=== PATIENT | male | born 1980 | race Caucasian/White ===

== ENCOUNTER → 2016-09-24 | Outpatient (CLI) | payer BC ==
--- NOTE | 2016-09-24 15:01 | KCIC ---
PROCEDURE Complete renal ultrasound. HISTORY Hematuria. TECHNIQUE Real-time ultrasound imaging of the kidneys and the bladder is performed. COMPARISON None. FINDINGS The abdominal aorta is normal in caliber. The IVC is patent. The urinary bladder is normal. Right and left ureteral jets are seen. Normal appearance of the kidneys, no hydronephrosis. Right kidney length is 10.5 cm as is the left kidney. IMPRESSION Normal renal ultrasound. Electronically signed by: Loc Dean MD (September 24, 2016 14:59:49)
== END | disposition home or self-care (01) ==
LOC: KCIC US 14:19
PROVIDERS: ATTEND Nurse Practitioner Family
DX: R31.9 Hematuria, unspecified (principal)
CPT/HCPCS: 76770

== ENCOUNTER 2021-02-07 14:30 | Inpatient (IN) | payer OTHER ==
[~2021-02-07] VITALS: Ht 177.8 cm; Wt 84.0 kg
[2021-02-07] VITALS (9 sets, daily range): BP systolic 102–126; BP diastolic 74–82
[2021-02-07] MEDS ORDERED: MORPHINE SULFATE 2 MG/ML INJ. IV PRN (15:15)
[2021-02-07] MEDS ORDERED: LIDOCAINE 1% Multi-Dose 20 ML VIAL. ONE (15:21)
--- NOTE | 2021-02-07 15:21 | PDOC1 ---
History and Physical Date of Admission Date of Admission DATE: 02/07/21 TIME: 15:20 Identification/Chief Complaint Chief Complaint Left hip pain, unable to walk Source Source: Patient History of Present Illness History of Present Illness Mr Barnett is a 40-year-old male with no past medical history who presented overnight on 02/06/21 to [facility] ED in [place], [place] c/o progressive pain in his hip Over the past 4 days he notes an initial "catching" and clicking and pain that has progressed to swelling with stiffness that began on 02/05/2021 and overnight was unable to move without severe pain and now is having difficulty lifting his leg 7 out of 10, sharp in nature with no radiation. States he has never had anything like this before. Denies any recent traumas, illnesses, fevers, chest pain, shortness of breath, abdominal pain, nausea, vomiting, dysuria, blood in the stool or diarrhea. Historically has had hematuria, but this was 5 years ago and none since. Denies any penile or scrotal pain, swelling or discharge. Denies any history of STIs. States he took hydrocodone about an hour before coming which gave minimal relief. He had morphine x3 doses, was unable to bear weight on his left hip CT notable for large left hip joint effusion, concerning for septic joint. Afebrile, pulse 98/min respirations 22/min blood pressure 140/68. WBC 15.4, Hb 14.3, platelets 220, NA 137, K4.1, BUN 11, Cr 1, Glucose 144, CRP 17, Lactic acid 1.4, Urice acid 6.7, Ca 8.5. Rapid COVID 19 negative ED d/w orthopedic surgery and myself to transfer for further assessment given his labs values and concern for inability to bear weight and possible septic joint. Seen in PACU at [place]. 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 He has no history of prior joint problems and is not taking medications. He has previously had wisdom tooth extraction and bilateral ingu inal hernia repairs. No history of blood clots or blood transfusion. Had some difficulty with wisdom tooth anesthesia but no problems with anesthesia with hernia repairs. D/w radiology and orthopedic surgery. Admitted for further care. Past Medical History Cardiovascular: No pertinent hx Pulmonary: No pertinent hx Past Surgical History Past Surgical History [place] tooth extraction, bilateral inguinal hernia repair Past Surgical History: Hernia Repair (Bilateral inguinal) Family History Family History reviewed Family History: No Significant Social History Smoke: No ALCOHOL: rare Drugs: None Current Medications Current Medications Current Medications Morphine Sulfate (Morphine Sulfate) 1 mg PRN Q1HR PRN IV PAIN; Start 02/07/21 at 15:15; Status UNV ROS General: No: Chills, Night Sweats, Fatigue, Malaise, Appetite, Other PSYCHOLOGICAL ROS: No: Anxiety, Behavioral Disorder, Concentration difficultie, Decreased libido, Depression, Disorientation, Hallucinations, Hostility, Irritablity, Memory difficulties, Mood Swings, Obsessive thoughts, Physical abuse, Sexual abuse, Sleep disturbances, Suicidal ideation, Other Eyes: No Blurry vision, No Decreased vision, No Double vision, No Dry eyes, No Excessive tearing, No Eye Pain, No Itchy Eyes, No Loss of vision, No Photophobia, No Scotomata, No Uses contacts, No Uses glasses, No Other HEENT: No: Heacaches, Visual Changes, Hearing change, Nasal congestion, Nasal discharge, Oral lesions, Sinus pain, Sore Throat, Epistaxis, Sneezing, Snoring, Tinnitus, Vertigo, Vocal changes, Other ALLERGY AND IMMUNOLOGY: No: Hives, Insect Bite Sensitivity, Itchy/Watery Eyes, Nasal Congestion, Post Nasal Drip, Seasonal Allergies, Other Hematological and Lymphatic: No: Bleeding Problems, Blood Clots, Blood Transfusions, Brusing, Night Sweats, Pallor, Swollen Lymph Nodes, Other ENDOCRINE: No: Breast Changes, Galactorrhea, Hair Pattern Changes, Hot Flashes, Malaise/lethargy, Mood Swings, Palpitations, Polydipsia/polyuria, Skin Changes, Temperature Intolerance, Unexpected Weight Changes, Other Breast: No New/Changing Breast Lumps, No Nipple changes, No Nipple discharge, No Other Respiratory: No: Cough, Hemoptysis, Orthopnea, Pleuritic Pain, Shortness of breath, SOB with excertion, Sputum Changes, Stridor, Tachypnea, Wheezing, Other Cardiovascular: No Chest Pain, No Palpitations, No Orthopnea, No Paroxysmal Noc. Dyspnea, No Edema, No Lt Headedness, No Other Gastrointestinal: No Nausea, No Vomiting, No Abdominal Pain, No Diarrhea, No Constipation, No Melena, No Hematochezia, No Other Genitourinary: No Dysuria, No Frequency, No Incontinence, No Hematuria, No Retention, No Discharge, No Urgency, No Pain, No Flank Pain, No Other, No , No , No , No , No , No , No Musculoskeletal: Yes Gait Disturbance, Yes Joint Pain, Yes Joint Stiffness, Yes Joint Swelling; No Muscle Pain, No Muscular Weakness, No Pain In:, No Swelling In:, No Other Neurological: Yes Gait Disturbance; No Behavorial Changes, No Bowel/Bladder ControlChng, No Confusion, No Dizziness, No Headaches, No Impaired Coord/balance, No Memory Loss, No Numbness/Tingling, No Seizures, No Speech Problems, No Tremors, No Visual Changes, No Weakness, No Other Skin: No Dry Skin, No Eczema, No Hair Changes, No Lumps, No Mole Changes, No Mottling, No Nail Changes, No Pruritus, No Rash, No Skin Lesion Changes, No Other, No Acne Physical Exam General: Alert, Oriented X3, Cooperative, moderate distress HEENT: Atraumatic, PERRLA, EOMI, Mucous membr. moist/pink Lungs: Clear to auscultation, Normal air movement Heart: S1S2, RRR, no thrills, no rubs, no gallops, no murmurs Abdomen: Normal bowel sounds, Soft, No tenderness, No hepatosplenomegaly, No masses Extremities: No clubbing, No cyanosis, No edema, Normal pulses, Other (left hip laterally tender, swollen, pain on extension) Skin: No rashes, No breakdown, No significant lesion Neuro: Normal speech, Strength at 5/5 X4 ext, Normal tone, Sensation intact, Cranial nerves 3-12 NL, Reflexes 2+ Psych/Mental Status: Mental status NL, Mood NL Images Images CT pelvis with IV contrast DATE: 02/07/2021 3:53 AM COMPARISON: No prior INDICATION: Reason: OMNI 300,75ML IV.Left sided groin pain lateral to pubic symph / Spl. Instructions: / History: TECHNIQUE: CT of the pelvis was performed following the administration of IV contrast. Axial, coronal and sagittal reformatted images were generated. PQRS compliance statement - One or more of the following individualized dose reduction techniques were utilized for this study: 1. Automated exposure control 2. Adjustment of the mA and/or kV according to patient size 3. Use of iterative reconstruction technique FINDINGS: There is a large left hip joint effusion. Moderate colonic stool content. No pelvic mass, lymphadenopathy or ascites. No aggressive osseous lesion is seen. IMPRESSION: 1. There is a large left hip joint effusion, uncertain clinical significance. This can be correlated with lab values, if there is clinical concern for septic joint aspiration can be performed. VTE Prophylaxis Ordered VTE Prophylaxis Devices: Yes VTE Pharmacological Prophylaxi: No Assessment/Plan Assessment/Plan A/P: Effusion of hip joint, left - concern for possible septic joint. Will hold antibiotics and d/w radiology for arthrocentesis under fluoro with culture, gram stain, crystal analysis. Orthopedic surgery consulted, seen bedside in PACU by Dr. Vasquez Unable to walk - due to above. d/w orthopedic surgery may need I&D Intractable hip pain - morphine for pain control SIRS - leukocytosis, tachycardia, possibly with septic hip joint. FEN - NPO PPX - SCDs FULL CODE Dispo - inpatient for above Justifications for Admission Other Justification BARRY TROTTER MD Feb 07, 2021 15:21
[2021-02-07] MEDS ORDERED: ACETAMINOPHEN 325 MG TABLET. PO PRN (15:30)
[2021-02-07] MEDS ORDERED: fentaNYL PF VIAL 100 MCG/2 ML VIAL IVP PRN ×4 (15:30→16:30)
[2021-02-07] MEDS ORDERED: ONDANSETRON PF 4 MG/2 ML VIAL. IVP PRN ×2 (15:30→16:30)
[2021-02-07] MEDS ORDERED: IOHEXOL 300 MG/ML 50 ML VIAL. ONE (15:39)
--- NOTE | 2021-02-07 15:43 | PDOC2 ---
Consult: Patient seen and evaluated in the preoperative holding area. He was transferred from [facility] just recently on my recommendation secondary to concerns for septic left hip joint. He apparently has had 4 days of slightly increasing hip pain until the last 12 hours he has had significant pain. He awoke in the middle of the night with severe left hip pain and inability to move or ambulate due to pain. He was subsequently seen at [facility] emergency room I was contacted and requested urgent transfer to [facility]. He is here today. His pain is somewhat controlled today with IV pain medication he is already received. He denies any specific injury or antecedent fever chills or constitutional symptoms of infection. Past medical surgical family and social history have been reviewed and are on the electronic health record as of February 07, 2021 Physical examination: Focused musculoskeletal exam with regards of the left lower extremity reveals no obvious deformity skin is intact. Neurovascular status is intact. He has a positive Stinchfield test. Tenderness over the left groin. Moderate to severe pain with passive range of motion of the left hip. Diagnostic findings He did have a noncontrast CT scan which reveals a large effusion of the left hip. No evidence of acute fracture or traumatic soft tissue injury seen on CT scan. Diagnosis: Severe left hip pain rule out septic arthritis I discussed with him his options for treatment. I recommended urgent interven tional radiology aspiration of the hip. If the tap appears to be infectious in nature he will need urgent incision and drainage of his hip while we await culture results. I discussed with him the long-term outlook of septic arthritis and in the short-term he will require 2 to 6 weeks of IV antibiotics depending on microbiology. He is understanding of this and wishes to proceed. We will first get him to interventional radiology and then may need to consider open drainage of his hip. BARRY LORA DO Feb 07, 2021 3:43 pm
[2021-02-07] MEDS ORDERED: HYDROmorphone 2 MG/ML VIAL IVP PRN (16:15)
[2021-02-07] MEDS ORDERED: PROCHLORPERAZINE 10 MG/2 ML VIAL. IVP PRN (16:15)
[2021-02-07] MEDS ORDERED: MORPHINE SULFATE 2 MG/ML INJ. IVP PRN ×2 (16:15→16:30)
[2021-02-07] MEDS ORDERED: LIDOCAINE 2% PF 5 ML VIAL. ONE (16:15)
[2021-02-07] MEDS ORDERED: IV RINGERS,LACTATED 1000ML 1,000 ML IV SCH (16:15)
[2021-02-07] MEDS ORDERED: PROPOFOL 10 MG/ML (20ML) VIAL. IV ONE (16:16)
[2021-02-07] MEDS ORDERED: fentaNYL PF VIAL 100 MCG/2 ML VIAL ONE (16:16)
--- NOTE | 2021-02-07 16:29 | RAD ---
EXAM: Fluoroscopically guided left hip aspiration joint injection of steroid and anesthetic INDICATION: Septic arthritis COMPARISON: CT abdomen pelvis 02/07/2021 TECHNIQUE/FINDINGS: The purpose of the procedure and risks including infection, bleeding, contrast reaction, and pain wer e discussed with the patient. Informed consent was obtained. A timeout was performed. After obtaining consent, the patient was placed supine on the fluoroscopy table with the left hip int ernally rotated. The skin overlying the left hip was marked, sterilized and draped. Superficial and deep soft tissues were anesthetized with 1% lidocaine. Utilizing fluoroscopic guidance, a 18-gauge 3.5" needle was advanced into the joint. Purulent fluid spontaneously flowed from the needle. 20 cc o f purulent fluid was aspirated and sent to the laboratory for analysis. A small amount of iodinated c ontrast was injected to confirm intra-articular position. The needle was removed and skin cleansed an d covered with a Band-Aid. The patient tolerated the procedure well and was free of immediate complications. Total fluoroscopic time 0.4 minutes. One image acquired. IMPRESSION: Technically successful left hip joint aspiration. Electronically signed by: Sima Kang MD (02/07/2021 4:26 PM) [id number]
[2021-02-07] MEDS ORDERED: oxyCODONE IR 5 MG TABLET PO PRN (16:30)
[2021-02-07] MEDS ORDERED: POLYETHYLENE GLYCOL 3350 17 GM PACKET. PO PRN (16:30)
[2021-02-07] MEDS ORDERED: MORPHINE SULFATE 4 MG/ML INJ. IVP PRN (16:30)
[2021-02-07] MEDS ORDERED: DEXTROSE 50% 25 GM / 50ML DISP.SYRIN. IV PRN (16:30)
[2021-02-07] MEDS ORDERED: ONDANSETRON PF 4 MG/2 ML VIAL. ONE (16:58)
[2021-02-07] MEDS ORDERED: SEVOFLURANE 31 TO 60 MINUTES. IH ONE (17:29)
--- NOTE | 2021-02-07 18:08 | PDOC4 ---
OPERATIVE NOTE: PROCEDURE: Open left hip irrigation and drainage POSTOPERATIVE DIAGNOSIS: Left hip presumed septic arthritis SURGEON: Barry Vasquez DO DELI CUTTER SLICER: None EBL: Less than 50 cc SPECIMEN: None ANESTHESIA: General POSITION: Lateral decubitus COMPLICATIONS: None. GROSS FINDINGS: Mucopurulent material was found within the joint with significant synovitis DISPOSITION: To PACU stable. IMPLANT SPECIFICATIONS: None DESCRIPTION OF PROCEDURE: Patient seen in the preoperative holding area site is marked consent was verified. He just underwent hip aspiration under imaging by interventional radiology. The aspirate was under high pressure and purulent in nature according to the radiologist. The decision was made for urgent drainage. This was discussed with the patient at length as well as his who is present today. At this point we have no microbiology to guarantee infection however his symptoms as well as the appearance of his aspirate are highly suggestive of septic arthritis. Patient received preoperative antibiotics was wheeled back the operating room. Department anesthesia administered general anesthetic maintained to control the airway. Once adequately anesthetized he was positioned with left hip up on a beanbag. At this point sterile prep and drape was performed the left lower extremity and hemipelvis. At this point a 15 cm incision was made centered over the greater trochanter. Soft tissue dissection was carried out sharply. The iliotibial band and gluteus fascia was split in line with the femur. The hip was slightly externally rotated. The anterior one third of the tendinous gluteus medius was identified and a small snip was carried out. Electrocautery was used to peel up the anteri or one third of the gluteus medius tendon off of the anterior femur and greater trochanter. At this point we had visualization of the capsule which was then split in a T-type arthrotomy. There is a moderate amount of mucopurulent material that was copiously irrigated and suctioned dry. Synovium was debrided in all areas of visualization. There were no masses seen. The wound was then copiously irrigated with 3 L of saline. It was suctioned dry. A deep drain was placed and the capsulotomy was left open. The gluteus medius was then closed followed by the gluteus bhupinder and iliotibial band. Subcutaneous tissues were closed in layers. Large bulky dressing was applied and anesthesia was reversed. Patient was transferred to postop in apparent stable condition. Prognosis is guarded as we will await final cultures. DISPOSITION: Patient Will be transferred to postop and anticipate discharge when stable. Prognosis: Good BARRY VASQUEZ DO Feb 07, 2021 18:08
[2021-02-07] MEDS ORDERED: VANCOMYCIN 2 GM in IV NORMAL SALINE 500ML BAG 500 ML IV ONE ×2 (18:15→19:00)
[2021-02-07 19:54] LABS: BF CLARITY CLOUDY; BF COLOR YELLOW; BF MON % 6 %; BF PMN % 94 %; BF RBC COUNT 400 /cmm (Not Established); BF SOURCE SYNOVIAL; BF WBC COUNT 6350 /cmm (Not Established)
[2021-02-07 19:55] LABS: BF OTHER % 0 %
[2021-02-07] MEDS: VANCOMYCIN PER PHARMACY MC PRN ×2 (20:47→22:25)
[2021-02-07] MEDS: cefTRIAXone IV Push 2 GM VIAL. IVP SCH (21:56)
[2021-02-08] MEDS: VANCOMYCIN PER PHARMACY MC PRN ×2 (02:01→14:46)
--- NOTE | 2021-02-08 02:02 | NUR ---
Pharmacy Vancomycin Dosing Note S:Consulted to monitor and dose vancomycin started 02/07/21. O:GRIS CASTAÑEDA is a 40 year old M with Drainage of Septic Hip . Height: 5 feet, 10 inches Weight: 84.0 kg [place] Body Weight: 73.00 Adjusted Body Weight: 77.40 Dosing Weight: Actual Other Antibiotics: LABS: Last BUN: 11 Last Creatinine: 1.0 Creatinine Clearance: 104 mL/min Last WBC: 15.4 Last Procalcitonin: - Tmax (past 24 hours): 100.9 Microbiology: I/O: Drug Levels: Last level: on at Last dose given 02/07/21 at 1958 Vancomycin Dosing: Loading Dose: 2000 mg x1 Dosing Weight: Actual Target Trough: 15-20 A: Based on: WEIGHT, CRCL~104, P: 1. INITIATE Vancomycin 1250 mg IV q12h AFTER 2000 MG LOADING DOSE 2. Follow up Trough level on 02/09/21 at 0730 3. Pharmacy will continue to monitor, follow and adjust therapy as needed. EHSAN TORRES [facility], 02/08/21 0206
[2021-02-08 03:00] VITALS: BP 125/80
[2021-02-08] MEDS: HYDROcodone/APAP 7.5/325MG 1 TAB TABLET PO PRN ×3 (04:32→18:00)
--- NOTE | 2021-02-08 05:27 | PDOC ---
Provider Note Date of Service: DATE: 02/08/21 TIME: 05:27 Provider Note Patient seen and evaluated this morning. He is resting well. No complaints of pain. Review of systems is negative today except for that noted in the history EXAM: -------- Well-nourished well-developed patient General: No acute distress. Neurologic: Alert. Psychiatric: Cooperative. Left hip dressing is clean dry and intact neurovascular status is intact. ASSESSMENT & PLAN: Status post I&D left hip on February 07, 2021 At this point I recommended infectious disease weigh in on concerns of septic arthritis and antibiotic treatment moving forward. He can weight-bear as tolerated. We will follow-up tomorrow. Justifications for Admission Other Justification BARRY LORA DO Feb 08, 2021 5:27 am
[2021-02-08] MEDS ORDERED: MAGNESIUM HYDROXIDE 2,400 MG/30 ML ORAL.SUSP. PO PRN (06:00)
[2021-02-08 07:00] VITALS: BP 112/68
[2021-02-08] MEDS: VANCOMYCIN 1.25 GM in IV NORMAL SALINE 250ML 250 ML IV SCH ×2 (08:20→20:48)
[2021-02-08] MEDS: LACTOBACILLUS RHAMNOSUS GG 1 CAPSULE. PO SCH ×2 (09:32→20:53)
[2021-02-08] MEDS: SENNOSIDES/DOCUSATE 8.6/50MG TABLET. PO SCH (09:32)
[2021-02-08 10:59] VITALS: BP 114/74
[2021-02-08 11:31] LABS: GFR 82.3
[2021-02-08 15:00] VITALS: BP 114/72
[2021-02-08] MEDS ORDERED: BISACODYL 10 MG SUPP.RECT. PR PRN (16:00)
[2021-02-08 16:38] LABS: HEMATOCRIT 37.7 % (39.0-53.0); HEMOGLOBIN 12.9 g/dL (13.0-17.5)
[2021-02-08 19:00] VITALS: BP 111/73
[2021-02-08] MEDS: cefTRIAXone IV Push 2 GM VIAL. IVP SCH (20:47)
[2021-02-08 23:00] VITALS: BP 117/79
[2021-02-09 03:00] VITALS: BP 118/78
[2021-02-09] MEDS: HYDROcodone/APAP 7.5/325MG 1 TAB TABLET PO PRN ×4 (03:32→21:01)
[2021-02-09 07:00] VITALS: BP 112/73
[2021-02-09 09:28] LABS: VANC TR 9.2 mcg/mL (10.0-20.0)
[2021-02-09] MEDS: SENNOSIDES/DOCUSATE 8.6/50MG TABLET. PO SCH (09:52)
[2021-02-09] MEDS: LACTOBACILLUS RHAMNOSUS GG 1 CAPSULE. PO SCH ×2 (09:52→21:01)
[2021-02-09] MEDS: VANCOMYCIN 1.25 GM in IV NORMAL SALINE 250ML 250 ML IV SCH ×2 (09:52→17:23)
[2021-02-09 09:55] LABS: CREATININE 0.9 mg/dL (0.7-1.3)
[2021-02-09] MEDS: VANCOMYCIN PER PHARMACY MC PRN (10:24)
--- NOTE | 2021-02-09 10:24 | NUR ---
Pharmacy Vancomycin Dosing Note S:Consulted to monitor and dose vancomycin started 02/07/21. O:GRIS CASTAÑEDA is a 40 year old M with Drainage of Septic Hip . Height: 5 feet, 10 inches Weight: 84.0 kg [place] Body Weight: 73.00 Adjusted Body Weight: 77.40 Dosing Weight: Actual Other Antibiotics: ROCEPHIN LABS: Last BUN: 11 Last Creatinine: 0.9 Creatinine Clearance: >100 mL/min Last WBC: 12.9 Last Procalcitonin: - Tmax (past 24 hours): 99.1 Microbiology: I/O: Drug Levels: Last Trough level: 9.2 on 02/09/21 at 0820 Last dose given 02/08/21 at 2048 Vancomycin Dosing: Loading Dose: 2000 mg x1 Dosing Weight: Actual Target Trough: 15-20 A: Based on: Subtherapeutic trough P: 1. Increase frequency to Vancomycin 1250 mg IV q8h 2. Follow up Trough level on 02/10/21 at 0930 3. Pharmacy will continue to monitor, follow and adjust therapy as needed. ISIDRO WORLEY RPH, 02/09/21 [id number]
[2021-02-09 11:00] VITALS: BP 115/65
[2021-02-09 15:15] VITALS: BP 113/66
[2021-02-09 19:00] VITALS: BP 119/66
--- NOTE | 2021-02-09 19:10 | PDOC ---
[employer] PROGRESS NOTE Date of Service DOS: DATE: 02/09/21 TIME: 18:58 Chief Complaint Chief Complaint Effusion of hip joint, left - concern for possible septic joint. Will hold antibiotics and d/w radiology for arthrocentesis under fluoro with culture, gram stain, crystal analysis. Orthopedic surgery consulted, seen bedside in PACU by Dr. Vasquez Unable to walk - due to above. d/w orthopedic surgery may need I&D Intractable hip pain - morphine for pain control SIRS - leukocytosis, tachycardia, possibly with septic hip joint. FEN - NPO PPX - SCDs FULL CODE Dispo - inpatient for above History of Present Illness History of Present Illness Mr Barnett is a 40-year-old male with no past medical history who presented overnight on 02/06/21 to [facility] ED in [place], [place] c/o progressive pain in his hip Over the past 4 days he notes an initial "catching" and clicking and pain that has progressed to swelling with stiffness that began on 02/05/2021 and overnight was unable to move without severe pain and now is having difficulty lifting his leg 7 out of 10, sharp in nature with no radiation. States he has never had anything like this before. Denies any recent traumas, illnesses, fevers, chest pain, shortness of breath, abdominal pain, nausea, vomiting, dysuria, blood in the stool or diarrhea. Historically has had hematuria, but this was 5 years ago and none since. Denies any penile or scrotal pain, swelling or discharge. Denies any history of STIs. States he took hydrocodone about an hour before coming which gave minimal relief. He had morphine x3 doses, was unable to bear weight on his left hip CT notable for large left hip joint effusion, concerning for septic joint. Afebrile, pulse 98/min respirations 22/min blood pressure 140/68. WBC 15.4, Hb 14.3, platelets 220, NA 137, K4.1, BUN 11, Cr 1, Glucose 144, CRP 17, Lactic acid 1.4, Urice acid 6.7, Ca 8.5. Rapid COVID 19 negative ED d/w orthopedic surgery and myself to transfer for further assessment given his labs values and concern for inability to bear weight and possible septic joint. Seen in PACU at [place]. 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 He has no history of prior joint problems and is not taking medications. He has previously had wisdom tooth extraction and bilateral inguinal hernia repairs. No history of blood clots or blood transfusion. Had some difficulty with wisdom tooth anesthesia but no problems with anesthesia with hernia repairs. D/w radiology and orthopedic surgery. 02/09/2021: Afebrile. Reports left hip pain with movement. Hydrocodone helps, but wears off. Frustrated he is not improving faster. Encouraged continued work with PT. Discussed with Dr. Vasquez, no cell count or Gram stain have resulted yet. No crystals seen under normal or polarized light will reorder fluid studies; cell count, AFB, fungal culture, aerobic/anaerobic culture, crystals, Gram stain. Will place consultation to ID. Vitals/I&O Vitals/I&O: Vital Signs Date Time Temp Pulse Resp B/P (MAP) Pulse Ox O2 Delivery O2 Flow Rate FiO2 02/09/21 15:15 99.3 100 20 113/66 (82) 91 Room Air 99.3 02/09/21 03:00 2.0 I & O 02/08/21 02/08/21 02/09/21 15:00 23:00 07:00 Intake Total 200 ml 0 ml Output Total 300 ml Balance 200 ml -300 ml Physical Exam General: Alert, Oriented X3, Cooperative, moderate distress Heart: Regular rate Lungs: Clear Abdomen: Normal bowel sounds, Soft, No tenderness, No hepatosplenomegaly, No masses Extremities: No clubbing, No cyanosis, No edema, Normal pulses, Other (left hip laterally tender, swollen, pain on extension) Skin: No rashes, No breakdown, No significant lesion Labs Labs: Laboratory Tests Test 02/09/21 08:20 Creatinine 0.9 mg/dL (0.7-1.3) Estimated GFR (Cockcroft-Gault) 93.0 Vancomycin Level Trough 9.2 mcg/mL (10.0-20.0) Vancomycin Last Dose Date 02/08/21 Vancomycin Last Dose Time 1999 Comment Review of Relevant I have reviewed the following items pietro (where applicable) has been applied. Medications: Current Medications Medications (Trade) Dose Ordered Sig/Re Route PRN Reason Start Time Stop Time Status Last Admin Dose Admin Vancomycin HCl (Vancomycin Trough Level) 1 each 1X ONCE MC 02/09/21 07:30 02/09/21 07:31 DC 02/09/21 07:30 Vancomycin HCl 1.25 gm/Sodium Chloride 250 ml @ 167 mls/hr Q8H IV 02/09/21 18:00 02/09/21 17:23 Justifications for Admission Other Justification DOMONIQUE BROWN MD Feb 09, 2021 19:10
[2021-02-09] MEDS ORDERED: oxyCODONE/APAP 7.5/325 1 TAB TABLET PO PRN (19:15)
[2021-02-09] MEDS ORDERED: oxyCODONE/APAP 5/325 1 TAB TABLET PO PRN (19:15)
[2021-02-09] MEDS: cefTRIAXone IV Push 2 GM VIAL. IVP SCH (21:01)
[2021-02-09 23:00] VITALS: BP 111/61
[2021-02-10 03:00] VITALS: BP 123/66
[2021-02-10] MEDS: VANCOMYCIN 1.25 GM in IV NORMAL SALINE 250ML 250 ML IV SCH ×2 (04:20→09:51)
[2021-02-10 07:15] VITALS: BP 120/61
[2021-02-10 07:28] LABS: BASO % 0 % (0-3); EOS # 0.2 x10^3/uL (0.0-0.7); EOS % 2 % (0-3); HEMATOCRIT 36.1 % (39.0-53.0); HEMOGLOBIN 12.4 g/dL (13.0-17.5); LYMPH # 1.8 x10^3/uL (1.0-4.8); LYMPH % 17 % (24-48); MEAN CORPUSCULAR HEMOGLOBIN 32 pg (25-35); MEAN CORPUSCULAR HGB CONC 34 g/dL (31-37); MEAN CORPUSCULAR VOLUME 93 fL (79-100); MONO # 0.9 x10^3/uL (0.0-1.1); MONO % 9 % (0-9); NEUT # 7.6 x10^3/uL (1.8-7.7); NEUT % 73 % (31-73); PLATELET COUNT 258 x10^3/uL (140-400); RED BLOOD COUNT 3.89 x10^6/uL (4.30-5.70); RED CELL DISTRIBUTION WIDTH 13.4 % (11.5-14.5); WHITE BLOOD COUNT 10.5 x10^3/uL (4.0-11.0)
[2021-02-10 07:44] LABS: CALCIUM 8.3 mg/dL (8.5-10.1); CREATININE 0.9 mg/dL (0.7-1.3); POTASSIUM 3.8 mmol/L (3.5-5.1)
[2021-02-10] MEDS: SENNOSIDES/DOCUSATE 8.6/50MG TABLET. PO SCH (08:27)
[2021-02-10] MEDS: LACTOBACILLUS RHAMNOSUS GG 1 CAPSULE. PO SCH ×2 (08:27→20:21)
[2021-02-10 08:36] LABS: C-REACTIVE PROTEIN 171.8 mg/L (0-3.3)
[2021-02-10] MEDS: VANCOMYCIN PER PHARMACY MC PRN ×3 (09:56→10:46)
[2021-02-10] MEDS: HYDROcodone/APAP 7.5/325MG 1 TAB TABLET PO PRN ×3 (10:15→20:30)
--- NOTE | 2021-02-10 10:50 | NUR ---
Pharmacy Vancomycin Dosing Note S:Consulted to monitor and dose vancomycin started 02/07/21. O:GRIS CASTAÑEDA is a 40 year old M with Drainage of Septic Hip . Height: 5 feet, 10 inches Weight: 84.0 kg [place] Body Weight: 73.00 Adjusted Body Weight: 77.40 Dosing Weight: Actual Other Antibiotics: ROCEPHIN LABS: Last BUN: 11 Last Creatinine: 0.9 Creatinine Clearance: 111 mL/min Last WBC: 12.4 Last Procalcitonin: - Tmax (past 24 hours): 99.4 Microbiology: I/O: 500/250 Drug Levels: Last Trough level: 24.0 on 02/10/21 at 0930 Last dose given 02/08/21 at 2048 Vancomycin Dosing: Loading Dose: 2000 mg x1 Dosing Weight: Actual Target Trough: 15-20 A: Based on trough of 24.0 using [employer] [facility] kinetics: P: 1. Start Vancomycin 1500 mg IV q12h. 2. Follow up Trough as needed. 3. Pharmacy will continue to monitor, follow and adjust therapy as needed. Yahir Silverio [facility], 02/10/21 1016
[2021-02-10 11:04] VITALS: BP 113/67
--- NOTE | 2021-02-10 11:32 | CONS ---
DATE OF CONSULTATION: 02/10/2021 REFERRING PHYSICIAN: Berhane Vasquez DO CONSULTING PHYSICIAN: Marck Aggarwal MD REASON FOR CONSULTATION: Septic hip, left. HISTORY OF PRESENT ILLNESS: A 40-year-old male with no significant past medical history, presented to [facility] ED on 02/06/2021 with complaints of left hip pain, which started a couple of days prior to admission, gradually getting worse to a degree that he had been unable to move without severe pain and also had difficulty with ambulation. He denied any history of injury. 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 Usually he has hip pain off and on on both the sides. Denied any fevers, chills, nausea, vomiting, diarrhea or abdominal pain. Denies any symptoms. Denies being on any antibiotics POA. Denies any history of STDs. His lab work at [facility] showed WBC of 15.4. CT showed large left hip effusion concerning for septic joint. Creatinine was normal. Lactate was 1.4. Uric acid was 6.7. Rapid COVID was negative. The patient was transferred to [facility] for evaluation by orthopedic surgeon. The patient underwent IR drainage of the left hip, which showed cloudy fluid nucleated cells 6350, polymorphs 94, total red cells were 400, crystals were none. The patient underwent I and D on 02/07/2021. Intraoperative cultures are pending. Surgical notes are pending. The patient is currently on IV vancomycin and ceftriaxone. ID consultation is requested for antibiotic management. The patient still continues to have pain in the left hip. His concern is he is unable to bear weight. PAST MEDICAL HISTORY: Inguinal hernia repair. PAST SURGICAL HISTORY: As above. Atkins tooth extraction. FAMILY HISTORY: As per HPI. SOCIAL HISTORY: Denies smoking. ETOH, rare. Drugs, none. 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 Lives with at home. No STDs. MEDICATIONS: IV vancomycin and ceftriaxone. Other medications reviewed in medication list. REVIEW OF SYSTEMS: Negative except for above in HPI. Denies any fever, chills, nausea, vomiting, diarrhea, abdominal pain, groin pain, symptoms, shortness of breath or cough or chest pain or rash PHYSICAL EXAMINATION: VITAL SIGNS: Temperature 98.8, pulse 95, respiratory rate 20, blood pressure 120/61, oxygen saturation 98% on 2 liters O2 by nasal cannula. GENERAL: Alert, oriented x 3, pleasant male lying in bed comfortably, in no acute distress. HEENT: Normocephalic, atraumatic. Anicteric. No thrush. NECK: Supple, no JVD. LUNGS: Clear bilaterally. No wheezing. HEART: S1, S2. No gallops or murmurs. ABDOMEN: Soft, nontender, nondistended, no rebound, no guarding. EXTREMITIES: Left hip area swelling present. Dressing intact, not taken down with drain in place with serosanguineous drainage. No cyanosis, no clubbing. DERMATOLOGIC: Warm, dry, no generalized rash except for above. NEUROLOGIC: Alert and oriented x 3, grossly nonfocal. PSYCHIATRIC: Calm and cooperative. PIV looks clean. LABORATORY DATA: WBCs 10.5, hemoglobin 12.4, hematocrit 36.1, platelets 258. Sodium 136, potassium 3.8, chloride 101, bicarbonate 26, BUN 11, creatinine 0.9, calcium 8.3. C-reactive protein 171.8. CK is 697. Synovial fluid on 02/07: Cloudy nucleated cells 6350 and 94% polymorphs, RBCs 400, no crystals seen. IMAGING: None here. MICROBIOLOGY: Intraoperative cultures pending at this time. IMPRESSION: 1. Possible left hip septic arthritis, status post synovial aspirate. As above, crystals negative. 02/09/2021 status post incision and drainage by Dr. Vasquez. Intraoperative cultures are pending at this time. 3. Leukocytosis, could be reactive. Improved 4. Intractable left hip pain from above. 5. History of bilateral intermittent hip pain 6. history of hernia repair. RECOMMENDATIONS: 1. Discontinue IV vancomycin due to high trough. Creatinine remains normal at this time 2. Start doxycycline 3. Continue ceftriaxone. 4. Follow up intraoperative cultures. 5. Continue wound care and drain management as directed. 6. PT and OT as directed. 7. Hip pain control per Primary. 8. Follow up urine GC and chlamydia, though suspicion appears low at this time. 9. Final recommendations for antibiotics will depend on intraoperative cultures and operative note. Thank you, Dr. Aggarwal for consulting Infectious Disease to participate in this patient's care. If you have any questions, do not hesitate to contact me. Discussed with nursing staff. NEYDA/STEPHANIE DR: Mell TID: [id number] MTDD
--- NOTE | 2021-02-10 12:59 | PDOC ---
[employer] PROGRESS NOTE Date of Service DOS: DATE: 02/10/21 TIME: 12:58 Chief Complaint Chief Complaint L hip effusion Possible septic joint SIRS Tobacco abuse History of Present Illness History of Present Illness 02/10/2021: Pt seen and examined. Discussed with RN. Chart reviewed. Pt cooperative and alert. 02/09/2021: Afebrile. Reports left hip pain with movement. Hydrocodone helps, but wears off. Frustrated he is not improving faster. Encouraged continued work with PT. Discussed with Dr. Vasquez, no cell count or Gram stain have resulted yet. No crystals seen under normal or polarized light will reorder fluid studies; cell count, AFB, fungal culture, aerobic/anaerobic culture, crystals, Gram stain. Will place consultation to ID. Vitals/I&O Vitals/I&O: Vital Signs Date Time Temp Pulse Resp B/P (MAP) Pulse Ox O2 Delivery O2 Flow Rate FiO2 02/10/21 11:04 98.7 99 20 113/67 (82) 95 Room Air 98.7 02/10/21 10:15 2.0 I & O 02/09/21 02/09/21 02/10/21 15:00 23:00 07:00 Intake Total 300 ml 200 ml Output Total 250 ml Balance 50 ml 200 ml Physical Exam General: Alert, Oriented X3, Cooperative, moderate distress Heart: Regular rate Lungs: Clear Abdomen: Normal bowel sounds, Soft, No tenderness, No hepatosplenomegaly, No masses Extremities: No clubbing, No cyanosis, No edema, Normal pulses, Other (left hip laterally tender, swollen, pain on extension) Skin: No rashes, No breakdown, No significant lesion Labs Labs: Laboratory Tests Test 02/10/21 06:20 02/10/21 09:30 White Blood Count 10.5 x10^3/uL (4.0-11.0) Red Blood Count 3.89 x10^6/uL (4.30-5.70) Hemoglobin 12.4 g/dL (13.0-17.5) Hematocrit 36.1 % (39.0-53.0) Mean Corpuscular Volume 93 fL (79-100) Mean Corpuscular Hemoglobin 32 pg (25-35) Mean Corpuscular Hemoglobin Concent 34 g/dL (31-37) Red Cell Distribution Width 13.4 % (11.5-14.5) Platelet Count 258 x10^3/uL (140-400) Neutrophils (%) (Auto) 73 % (31-73) Lymphocytes (%) (Auto) 17 % (24-48) Monocytes (%) (Auto) 9 % (0-9) Eosinophils (%) (Auto) 2 % (0-3) Basophils (%) (Auto) 0 % (0-3) Neutrophils # (Auto) 7.6 x10^3/uL (1.8-7.7) Lymphocytes # (Auto) 1.8 x10^3/uL (1.0-4.8) Monocytes # (Auto) 0.9 x10^3/uL (0.0-1.1) Eosinophils # (Auto) 0.2 x10^3/uL (0.0-0.7) Basophils # (Auto) 0.0 x10^3/uL (0.0-0.2) Sodium Level 136 mmol/L (136-145) Potassium Level 3.8 mmol/L (3.5-5.1) Chloride Level 101 mmol/L (98-107) Carbon Dioxide Level 26 mmol/L (21-32) Anion Gap 9 (6-14) Blood Urea Nitrogen 11 mg/dL (8-26) Creatinine 0.9 mg/dL (0.7-1.3) Estimated GFR (Cockcroft-Gault) 93.0 Glucose Level 84 mg/dL (70-99) Calcium Level 8.3 mg/dL (8.5-10.1) C-Reactive Protein, Quantitative 171.8 mg/L (0-3.3) Vancomycin Level Trough 24.0 mcg/mL (10.0-20.0) Vancomycin Last Dose Date 02/10/21 Vancomycin Last Dose Time 0200 Assessment and Plan Assessmemt and Plan L hip effusion Possible septic joint SIRS Tobacco abuse Plan: Continue antibiotics (Vanco, Rocephin) Continue pain meds Appreciate subspecialty input (ID, Ortho) Wound care Monitor drain Trend labs Cardiac monitoring DVT prophylaxis Full code Comment Review of Relevant I have reviewed the following items pietro (where applicable) has been applied. Medications: Current Medications Medications (Trade) Dose Ordered Sig/Re Route PRN Reason Start Time Stop Time Status Last Admin Dose Admin Vancomycin HCl 1.25 gm/Sodium Chloride 250 ml @ 167 mls/hr Q8H IV 02/09/21 18:00 02/10/21 10:44 DC 02/10/21 09:51 Vancomycin HCl (Vancomycin Trough Level) 1 each 1X ONCE MC 02/10/21 09:30 02/10/21 09:31 DC 02/10/21 09:30 Justifications for Admission Other Justification PRATIBHA LOVETT III DO Feb 10, 2021 12:59
[2021-02-10 14:56] VITALS: BP 114/57
[2021-02-10 19:00] VITALS: BP 117/34
[2021-02-10] MEDS: cefTRIAXone IV Push 2 GM VIAL. IVP SCH (20:21)
[2021-02-10] MEDS: DOXYCYCLINE HYCLATE 100 MG TABLET PO SCH (20:22)
[2021-02-10] MEDS ORDERED: NORMAL SALINE IV SCH (22:00)
[2021-02-10] MEDS ORDERED: VANCOMYCIN IV SCH (22:00)
[2021-02-10 23:25] VITALS: BP 104/65
[2021-02-11] MEDS: HYDROcodone/APAP 7.5/325MG 1 TAB TABLET PO PRN ×4 (02:20→20:29)
[2021-02-11 03:00] VITALS: BP 123/68
[2021-02-11 04:35] LABS: BASO # 0.1 x10^3/uL (0.0-0.2); BASO % 1 % (0-3); EOS # 0.3 x10^3/uL (0.0-0.7); EOS % 3 % (0-3); HEMATOCRIT 34.1 % (39.0-53.0); HEMOGLOBIN 11.7 g/dL (13.0-17.5); LYMPH # 1.7 x10^3/uL (1.0-4.8); LYMPH % 18 % (24-48); MEAN CORPUSCULAR HEMOGLOBIN 32 pg (25-35); MEAN CORPUSCULAR HGB CONC 34 g/dL (31-37); MEAN CORPUSCULAR VOLUME 93 fL (79-100); MONO % 10 % (0-9); NEUT # 6.8 x10^3/uL (1.8-7.7); NEUT % 69 % (31-73); PLATELET COUNT 298 x10^3/uL (140-400); RED BLOOD COUNT 3.69 x10^6/uL (4.30-5.70); RED CELL DISTRIBUTION WIDTH 13.8 % (11.5-14.5); WHITE BLOOD COUNT 9.8 x10^3/uL (4.0-11.0)
[2021-02-11 05:15] LABS: CALCIUM 8.5 mg/dL (8.5-10.1); CREATININE 0.9 mg/dL (0.7-1.3); POTASSIUM 3.8 mmol/L (3.5-5.1)
[2021-02-11 07:00] VITALS: BP 106/65
--- NOTE | 2021-02-11 08:15 | PDOC ---
Infectious Disease Note Subjective: Subjective Patient feels a little better today Still has pain in the left hip Drain was removed yesterday Denies any further episodes of nausea Denies fever, vomiting, shortness of breath, diarrhea, abdominal pain, rash Otherwise as above Vital Signs: Vital Signs Vital Signs Date Time Temp Pulse Resp B/P (MAP) Pulse Ox O2 Delivery O2 Flow Rate FiO2 02/11/21 03:00 98.2 91 20 123/68 (86) 95 Room Air 98.2 02/10/21 10:15 2.0 Physical Exam: PHYSICAL EXAM GENERAL: Alert, oriented x 3, pleasant male lying in bed comfortably, in no acute distress. HEENT: Normocephalic, atraumatic. Anicteric. No thrush. NECK: Supple, no JVD. LUNGS: Clear bilaterally. No wheezing. HEART: S1, S2. No gallops or murmurs. ABDOMEN: Soft, nontender, nondistended, no rebound, no guarding. EXTREMITIES: Left hip area swelling present. Dressing intact, not taken down Bruising present, drain removed.No cyanosis, no clubbing. DERMATOLOGIC: Warm, dry, no generalized rash except for above. NEUROLOGIC: Alert and oriented x 3, grossly nonfocal. PSYCHIATRIC: Calm and cooperative. PIV looks clean. Medications: Inpatient Meds: Medications reviewed. Labs: Lab Laboratory Tests Test 02/10/21 09:30 02/11/21 03:25 Vancomycin Level Trough 24.0 mcg/mL (10.0-20.0) Vancomycin Last Dose Date 02/10/21 Vancomycin Last Dose Time 0200 White Blood Count 9.8 x10^3/uL (4.0-11.0) Red Blood Count 3.69 x10^6/uL (4.30-5.70) Hemoglobin 11.7 g/dL (13.0-17.5) Hematocrit 34.1 % (39.0-53.0) Mean Corpuscular Volume 93 fL (79-100) Mean Corpuscular Hemoglobin 32 pg (25-35) Mean Corpuscular Hemoglobin Concent 34 g/dL (31-37) Red Cell Distribution Width 13.8 % (11.5-14.5) Platelet Count 298 x10^3/uL (140-400) Neutrophils (%) (Auto) 69 % (31-73) Lymphocytes (%) (Auto) 18 % (24-48) Monocytes (%) (Auto) 10 % (0-9) Eosinophils (%) (Auto) 3 % (0-3) Basophils (%) (Auto) 1 % (0-3) Neutrophils # (Auto) 6.8 x10^3/uL (1.8-7.7) Lymphocytes # (Auto) 1.7 x10^3/uL (1.0-4.8) Monocytes # (Auto) 1.0 x10^3/uL (0.0-1.1) Eosinophils # (Auto) 0.3 x10^3/uL (0.0-0.7) Basophils # (Auto) 0.1 x10^3/uL (0.0-0.2) Sodium Level 140 mmol/L (136-145) Potassium Level 3.8 mmol/L (3.5-5.1) Chloride Level 104 mmol/L (98-107) Carbon Dioxide Level 28 mmol/L (21-32) Anion Gap 8 (6-14) Blood Urea Nitrogen 13 mg/dL (8-26) Creatinine 0.9 mg/dL (0.7-1.3) Estimated GFR (Cockcroft-Gault) 93.0 Glucose Level 106 mg/dL (70-99) Calcium Level 8.5 mg/dL (8.5-10.1) Micro RUN DATE: 02/11/21 [facility] *LIVE* PAGE 1 RUN TIME: 32 Specimen Inquiry PATIENT: GRIS CASTAÑEDA ACCT: [id number] LOC: [address] [place] [address] U: [id number] AGE/SX: 40/M ROOM: 422 RE02/07/[address]: BARRY TROTTER MD : 1980 BED: 1 DIS: STATUS: ADM IN TLOC: SPEC #: [id number] JAD: 02/07/21 STATUS: RES REQ #: [id number] RECD: 02/09/[address]: BARRY VASQUEZ DO SOURCE: [facility] EN[facility]: 02/10/[address] [facility] [address]: KEVIN LACY MD SPDESC: DOMONIQUE BROWN MD NO PCP BARRY TROTTER MD ORDERED: SADIA/JARRETT/AMITA COMMENTS: LEFT HIP FLUID ------- ----- Procedure Result GRAM STAIN Final Final NO ORGANISMS SEEN. SQUAMOUS EPI CELL:NOT APPLICABLE PMN (WBCs):MANY Unless otherwise specified, Testing Performed by: [facility] [address] [place] [address] For Inquires, the Physician may contact the Microbiology department at [phone] ANAEROBIC-AEROBIC CULTURE Preliminary Preliminary No Growth on 02/11/21 at 0928 Unless otherwise specified, Testing Performed by: [facility] [address] [place] [address] For Inquires, the Physician may contact the Microbiology department at [phone] Objective: Assessment: 1. Left hip pain, Possible left hip septic arthritis, status post synovial aspirate with purulent fluid aspirated. Left hip synovitis aspirate studies noted February 09, 2021 status post incision and drainage by Dr. Vasquez. Intraoperative cultures are pending at this time. 2.. Leukocytosis, could be reactive. 3. Intractable left hip pain. 4. Intermittent bilateral hip pain 5. History of hernia repair. Plan: Plan of Care Continue ceftriaxone and doxycycline at this time Follow-up intraoperative cultures which are still pending Continue wound and drain management as directed PT and OT as directed Pain control per primary Urine GC and chlamydia is pending at this time Intraoperative note is still pending at this time Discussed with at bedside KEVIN LACY MD Feb 11, 2021 08:15
[2021-02-11] MEDS: DOXYCYCLINE HYCLATE 100 MG TABLET PO SCH ×2 (08:23→20:15)
[2021-02-11] MEDS: SENNOSIDES/DOCUSATE 8.6/50MG TABLET. PO SCH (08:24)
[2021-02-11] MEDS: LACTOBACILLUS RHAMNOSUS GG 1 CAPSULE. PO SCH ×2 (08:24→20:15)
[2021-02-11 11:29] VITALS: BP 124/64
--- NOTE | 2021-02-11 11:57 | PDOC ---
[employer] PROGRESS NOTE Date of Service DOS: DATE: 02/11/21 TIME: 11:55 Chief Complaint Chief Complaint L hip effusion Possible septic joint SIRS Tobacco abuse History of Present Illness History of Present Illness 02/11/2021 No acute events overnight. Patient seen and examined bedside. Evaluated by physical therapy and they recommend acute rehab. Patient states that he feels like he might wants to go home. Patient endorses improved mobility with his left and right lower extremity. Dressings are clear dry intact. Afebrile. Patient's chart, labs, images were reviewed and discussed with RN 02/10/2021: Pt seen and examined. Discussed with RN. Chart reviewed. Pt cooperative and alert. 02/09/2021: Afebrile. Reports left hip pain with movement. Hydrocodone helps, but wears off. Frustrated he is not improving faster. Encouraged continued work with PT. Discussed with Dr. Vasquez, no cell count or Gram stain have resulted yet. No crystals seen under normal or polarized light will reorder fluid studies; cell count, AFB, fungal culture, aerobic/anaerobic culture, crystals, Gram stain. Will place consultation to ID. Vitals/I&O Vitals/I&O: Vital Signs Date Time Temp Pulse Resp B/P (MAP) Pulse Ox O2 Delivery O2 Flow Rate FiO2 02/11/21 11:51 Room Air 02/11/21 11:29 98.5 87 16 124/64 (84) 94 98.5 02/10/21 10:15 2.0 I & O 02/10/21 02/10/21 02/11/21 15:00 23:00 07:00 Intake Total 420 ml 440 ml 140 ml Output Total 385 ml 100 ml Balance 35 ml 440 ml 40 ml Physical Exam Physical Exam: GENERAL: Alert, oriented x 3, pleasant male lying in bed comfortably, in no acute distress. HEENT: Normocephalic, atraumatic. Anicteric. No thrush. NECK: Supple, no JVD. LUNGS: Clear bilaterally. No wheezing. HEART: S1, S2. No gallops or murmurs. ABDOMEN: Soft, nontender, nondistended, no rebound, no guarding. EXTREMITIES: Left hip area swelling present. Dressing intact, not taken down Bruising present, drain removed.No cyanosis, no clubbing. DERMATOLOGIC: Warm, dry, no generalized rash except for above. NEUROLOGIC: Alert and oriented x 3, grossly nonfocal. PSYCHIATRIC: Calm and cooperative. PIV looks clean. General: Alert, Oriented X3, Cooperative, moderate distress Heart: Regular rate Lungs: Clear Abdomen: Normal bowel sounds, Soft, No tenderness, No hepatosplenomegaly, No masses Extremities: No clubbing, No cyanosis, No edema, Normal pulses, Other (left hip laterally tender, swollen, pain on extension) Skin: No rashes, No breakdown, No significant lesion Labs Labs: Laboratory Tests Test 02/11/21 03:25 White Blood Count 9.8 x10^3/uL (4.0-11.0) Red Blood Count 3.69 x10^6/uL (4.30-5.70) Hemoglobin 11.7 g/dL (13.0-17.5) Hematocrit 34.1 % (39.0-53.0) Mean Corpuscular Volume 93 fL (79-100) Mean Corpuscular Hemoglobin 32 pg (25-35) Mean Corpuscular Hemoglobin Concent 34 g/dL (31-37) Red Cell Distribution Width 13.8 % (11.5-14.5) Platelet Count 298 x10^3/uL (140-400) Neutrophils (%) (Auto) 69 % (31-73) Lymphocytes (%) (Auto) 18 % (24-48) Monocytes (%) (Auto) 10 % (0-9) Eosinophils (%) (Auto) 3 % (0-3) Basophils (%) (Auto) 1 % (0-3) Neutrophils # (Auto) 6.8 x10^3/uL (1.8-7.7) Lymphocytes # (Auto) 1.7 x10^3/uL (1.0-4.8) Monocytes # (Auto) 1.0 x10^3/uL (0.0-1.1) Eosinophils # (Auto) 0.3 x10^3/uL (0.0-0.7) Basophils # (Auto) 0.1 x10^3/uL (0.0-0.2) Sodium Level 140 mmol/L (136-145) Potassium Level 3.8 mmol/L (3.5-5.1) Chloride Level 104 mmol/L (98-107) Carbon Dioxide Level 28 mmol/L (21-32) Anion Gap 8 (6-14) Blood Urea Nitrogen 13 mg/dL (8-26) Creatinine 0.9 mg/dL (0.7-1.3) Estimated GFR (Cockcroft-Gault) 93.0 Glucose Level 106 mg/dL (70-99) Calcium Level 8.5 mg/dL (8.5-10.1) Comment Review of Relevant I have reviewed the following items pietro (where applicable) has been applied. Medications: Current Medications Medications (Trade) Dose Ordered Sig/Re Route PRN Reason Start Time Stop Time Status Last Admin Dose Admin Doxycycline Hyclate (Vibra-Tab) 100 mg BID PO 02/10/21 21:00 02/11/21 08:23 Justifications for Admission Other Justification LOUIS GOLDEN MD Feb 11, 2021 11:56
[2021-02-11] MEDS: ENOXAPARIN 40 MG/0.4 ML SYRINGE. SQ SCH (12:53)
--- NOTE | 2021-02-11 14:07 | NUR ---
Midline preinsertion note Allergies and reactions NKDA INR na BUN 13 Cr 0.9 Platelets 298 Blood culture done yes blood culture results not available Order Verified Y Consent signed Y Previous midline placement N Past Medical/Surgical history and current diagnosis reviewed Y Patient Medical /Surgical History Related to midline line placement None Arrhythmias Automatic Implantable Cardioverter Defibrillator (AICD) Cancer Chemotherapy Deep Vein Thrombosis (DVT) Diabetes Enlarged veins arm/neck Fracture of collar bone History of acute/chronic renal failure History of bleeding, bruising, clotting disorder Infectious Disease consult Y Irradiation Mastectomy with/without lymph resection arm Neck/Chest Surgery Pacemaker Past central line or venous access device placement Probability of fistula placement Problems breathing lying flat Pulmonary Embolism (PE) Radiation Renal consult Septicemia/Bacteremia Suspected device related infection Vascular/Surgery arms Special considerations for midline line placement None Y Anticoagulation therapy Arm contractures/ Compromised arm Burn(s) near insertion site Dermatitis Existing thrombosis/thrombophlebitis Infections Injured/sclerotic veins Open wound(s) near insertion site Scar(s) near insertion site Severe peripheral edema Using crutches Midline placement indication Caustic medication 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
[2021-02-11 15:00] VITALS: BP 101/65
--- NOTE | 2021-02-11 15:00 | NUR ---
Midline insertion note Procedure: Following complete explanation of the Midline procedure including the indications, risks, and potential complications, informed consent was obtained. The possibility for infection was discussed along with signs, symptoms, and prevention. All the questions were answered. Written and verbal patient education was provided. Hand hygiene performed. Standardized central line checklist was utilized. The patient was placed in the supine position, the arm was prepped with chlorhexidine and patient draped with maximum sterile barrier. 5 mL 1% lidocaine was infiltrated into the skin to provide local anesthesia. A thorough assessment of Left upper extremity completed. Using real-time ultrasound guidance and standardized micro puncture set, the brachial vein was punctured and a peel away sheath was placed using the modified Seldinger technique. The catheter was secured using a securement device and an antimicrobial patch was applied directly on the insertion site followed by a transparent dressing. All ports withdraw blood and flush without resistance. Patient tolerated the procedure without apparent complication(s). Single Lumen Power Midline placement successful and uncomplicated. Tip located in L axilla. Complications: none
[2021-02-11 19:00] VITALS: BP 104/62
[2021-02-11] MEDS: cefTRIAXone IV Push 2 GM VIAL. IVP SCH (20:15)
[2021-02-11 23:00] VITALS: BP 110/70
[2021-02-12 03:00] VITALS: BP 128/78
[2021-02-12 04:47] LABS: BASO % 1 % (0-3); EOS # 0.2 x10^3/uL (0.0-0.7); EOS % 2 % (0-3); HEMATOCRIT 34.1 % (39.0-53.0); HEMOGLOBIN 11.7 g/dL (13.0-17.5); LYMPH # 1.8 x10^3/uL (1.0-4.8); LYMPH % 18 % (24-48); MEAN CORPUSCULAR HEMOGLOBIN 32 pg (25-35); MEAN CORPUSCULAR HGB CONC 34 g/dL (31-37); MEAN CORPUSCULAR VOLUME 92 fL (79-100); MONO % 10 % (0-9); NEUT # 7.1 x10^3/uL (1.8-7.7); NEUT % 70 % (31-73); PLATELET COUNT 337 x10^3/uL (140-400); RED CELL DISTRIBUTION WIDTH 13.4 % (11.5-14.5); WHITE BLOOD COUNT 10.2 x10^3/uL (4.0-11.0)
[2021-02-12 05:01] LABS: CALCIUM 8.6 mg/dL (8.5-10.1); CREATININE 0.9 mg/dL (0.7-1.3); POTASSIUM 3.8 mmol/L (3.5-5.1)
[2021-02-12 07:00] VITALS: BP 119/72
--- NOTE | 2021-02-12 08:24 | PDOC ---
Infectious Disease Note Subjective: Subjective Patient feels a little better today Still has pain in the left hip but slowly improving Ambulating with a walker Denies fever, nausea, vomiting, shortness of breath, diarrhea, abdominal pain, rash Otherwise as above Vital Signs: Vital Signs Vital Signs Date Time Temp Pulse Resp B/P (MAP) Pulse Ox O2 Delivery O2 Flow Rate FiO2 02/12/21 03:00 98.0 87 18 128/78 (95) 90 Room Air 98.0 Physical Exam: PHYSICAL EXAM GENERAL: Alert, oriented x 3, pleasant male lying in bed comfortably, in no acute distress. HEENT: Normocephalic, atraumatic. Anicteric. No thrush. NECK: Supple, no JVD. LUNGS: Clear bilaterally. No wheezing. HEART: S1, S2. No gallops or murmurs. ABDOMEN: Soft, nontender, nondistended, no rebound, no guarding. EXTREMITIES: Left hip area swelling present. Dressing intact, not taken down Bruising present, drain removed.No cyanosis, no clubbing. DERMATOLOGIC: Warm, dry, no generalized rash except for above. NEUROLOGIC: Alert and oriented x 3, grossly nonfocal. PSYCHIATRIC: Calm and cooperative. PIV looks clean. Midline clean Medications: Inpatient Meds: Medications reviewed. Labs: Lab Laboratory Tests Test 02/11/21 10:05 02/12/21 03:45 SARS-CoV-2 Antigen (Rapid) Negative (NEGATIVE) White Blood Count 10.2 x10^3/uL (4.0-11.0) Red Blood Count 3.70 x10^6/uL (4.30-5.70) Hemoglobin 11.7 g/dL (13.0-17.5) Hematocrit 34.1 % (39.0-53.0) Mean Corpuscular Volume 92 fL (79-100) Mean Corpuscular Hemoglobin 32 pg (25-35) Mean Corpuscular Hemoglobin Concent 34 g/dL (31-37) Red Cell Distribution Width 13.4 % (11.5-14.5) Platelet Count 337 x10^3/uL (140-400) Neutrophils (%) (Auto) 70 % (31-73) Lymphocytes (%) (Auto) 18 % (24-48) Monocytes (%) (Auto) 10 % (0-9) Eosinophils (%) (Auto) 2 % (0-3) Basophils (%) (Auto) 1 % (0-3) Neutrophils # (Auto) 7.1 x10^3/uL (1.8-7.7) Lymphocytes # (Auto) 1.8 x10^3/uL (1.0-4.8) Monocytes # (Auto) 1.0 x10^3/uL (0.0-1.1) Eosinophils # (Auto) 0.2 x10^3/uL (0.0-0.7) Basophils # (Auto) 0.0 x10^3/uL (0.0-0.2) Sodium Level 140 mmol/L (136-145) Potassium Level 3.8 mmol/L (3.5-5.1) Chloride Level 103 mmol/L (98-107) Carbon Dioxide Level 27 mmol/L (21-32) Anion Gap 10 (6-14) Blood Urea Nitrogen 15 mg/dL (8-26) Creatinine 0.9 mg/dL (0.7-1.3) Estimated GFR (Cockcroft-Gault) 93.0 Glucose Level 100 mg/dL (70-99) Calcium Level 8.6 mg/dL (8.5-10.1) Micro RUN DATE: 02/11/21 [facility] LAB *LIVE* PAGE 1 RUN TIME: 931 Specimen Inquiry PATIENT: GARRYGRIS ACCT: [id number] LOC: [address] [place] [address] U: [id number] AGE/SX: 40/M ROOM: 422 RE02/07/[address]: BARRY TROTTER MD : 1980 BED: 1 DIS: STATUS: ADM IN TLOC: SPEC #: [id number] JAD: 02/07/21 STATUS: RES REQ #: [id number] RECD: 02/09/[address]: BARRY VASQUEZ DO SOURCE[facility] EN[facility]: 02/10/21 [facility] DR: KEVIN LACY MD SPDESC: DOMONIQUE BROWN MD NO PCP BARRY TROTTER MD ORDERED: ANAER/AEROB/AMITA COMMENTS: LEFT HIP FLUID Procedure Result GRAM STAIN Final Final NO ORGANISMS SEEN. SQUAMOUS EPI CELL:NOT APPLICABLE PMN (WBCs):MANY Unless otherwise specified, Testing Performed by: [address] [address] For Inquires, the Physician may contact the Microbiology department at [phone] ANAEROBIC-AEROBIC CULTURE Preliminary Preliminary No Growth on 02/11/21 at 0928 Unless otherwise specified, Testing Performed by: [facility] [address] [place] [address] For Inquires, the Physician may contact the Microbiology department at [phone] Objective: Assessment: 1. Left hip pain, Possible left hip septic arthritis, status post synovial aspirate with purulent fluid aspirated. Left hip synovitis aspirate studies noted February 09, 2021 status post incision and drainage by Dr. Vasquez. Intraoperative cultures are negative so far 2.. Leukocytosis, resolved 3. Intractable left hip pain. Improving slowly 4. 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 History of hernia repair. 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 Wednesday labs CBC/BUN/creatinine//ESR/CRP. Fax results to [phone] Follow-up ID clinic in 3 weeks,Appt during Mar 05 or Mar 06 PH [phone] Wound care per Orthopedics PT and OT as directed Pain control per primary Discussed with at bedside yesterday Discussed with KEVIN ASHTON MD Feb 12, 2021 08:24
[2021-02-12] MEDS ORDERED: ERTAPENEM 1GM IVPB(GENERIC) NS 50 ML IV ONE (08:30)
[2021-02-12] MEDS: DOXYCYCLINE HYCLATE 100 MG TABLET PO SCH ×2 (08:31→19:59)
[2021-02-12] MEDS: LACTOBACILLUS RHAMNOSUS GG 1 CAPSULE. PO SCH ×2 (08:31→19:59)
[2021-02-12] MEDS: SENNOSIDES/DOCUSATE 8.6/50MG TABLET. PO SCH (08:31)
--- NOTE | 2021-02-12 08:51 | PDOC ---
[facility] PROGRESS NOTE Date of Service DOS: DATE: 02/12/21 TIME: 08:51 Chief Complaint Chief Complaint L hip effusion Possible septic joint SIRS Tobacco abuse History of Present Illness History of Present Illness 02/12/2021 Patient seen and examined I called the pharmacy to clarify antibiotic coverage We currently have him on Rocephin 2 g every 24 hours and p.o. doxycycline Overall patient doing well but having some pain Tolerating breakfast 02/11/2021 No acute events overnight. Patient seen and examined bedside. Evaluated by physical therapy and they recommend acute rehab. Patient states that he feels like he might wants to go home. Patient endorses improved mobility with his left and right lower extremity. Dressings are clear dry intact. Afebrile. Patient's chart, labs, images were reviewed and discussed with RN 02/10/2021: Pt seen and examined. Discussed with RN. Chart reviewed. Pt coop erative and alert. 02/09/2021: Afebrile. Reports left hip pain with movement. Hydrocodone helps, but wears off. Frustrated he is not improving faster. Encouraged continued work with PT. Discussed with Dr. Vasquez, no cell count or Gram stain have resu lted yet. No crystals seen under normal or polarized light will reorder fluid studies; cell count, AFB, fungal culture, aerobic/anaerobic culture, crystals, Gram stain. Will place consultation to ID. Vitals/I&O Vitals/I&O: Vital Signs Date Time Temp Pulse Resp B/P (MAP) Pulse Ox O2 Delivery O2 Flow Rate FiO2 02/12/21 07:00 98.0 95 20 119/72 (88) 93 Room Air 98.0 I & O 02/11/21 02/11/21 02/12/21 15:00 23:00 07:00 Intake Total 240 ml 1250 ml Output Total 250 ml 650 ml Balance 240 ml 1000 ml -650 ml Physical Exam Physical Exam: GENERAL: Alert, oriented x 3, pleasant male lying in bed comfortably, in no acute distress. HEENT: Normocephalic, atraumatic. Anicteric. No thrush. NECK: Supple, no JVD. LUNGS: Clear bilaterally. No wheezing. HEART: S1, S2. No gallops or murmurs. ABDOMEN: Soft, nontender, nondistended, no rebound, no guarding. EXTREMITIES: Left hip area swelling present. Dressing intact, not taken down Bruising present, drain removed.No cyanosis, no clubbing. DERMATOLOGIC: Warm, dry, no generalized rash except for above. NEUROLOGIC: Alert and oriented x 3, grossly nonfocal. PSYCHIATRIC: Calm and cooperative. PIV looks clean. Midline clean General: Alert, Oriented X3, Cooperative, moderate distress Heart: Regular rate Lungs: Clear Abdomen: Normal bowel sounds, Soft, No tenderness, No hepatosplenomegaly, No masses Extremities: No clubbing, No cyanosis, No edema, Normal pulses, Other (left hip laterally tender, swollen, pain on extension) Skin: No rashes, No breakdown, No significant lesion Labs Labs: Laboratory Tests Test 02/11/21 10:05 02/12/21 03:45 SARS-CoV-2 Antigen (Rapid) Negative (NEGATIVE) White Blood Count 10.2 x10^3/uL (4.0-11.0) Red Blood Count 3.70 x10^6/uL (4.30-5.70) Hemoglobin 11.7 g/dL (13.0-17.5) Hematocrit 34.1 % (39.0-53.0) Mean Corpuscular Volume 92 fL (79-100) Mean Corpuscular Hemoglobin 32 pg (25-35) Mean Corpuscular Hemoglobin Concent 34 g/dL (31-37) Red Cell Distribution Width 13.4 % (11.5-14.5) Platelet Count 337 x10^3/uL (140-400) Neutrophils (%) (Auto) 70 % (31-73) Lymphocytes (%) (Auto) 18 % (24-48) Monocytes (%) (Auto) 10 % (0-9) Eosinophils (%) (Auto) 2 % (0-3) Basophils (%) (Auto) 1 % (0-3) Neutrophils # (Auto) 7.1 x10^3/uL (1.8-7.7) Lymphocytes # (Auto) 1.8 x10^3/uL (1.0-4.8) Monocytes # (Auto) 1.0 x10^3/uL (0.0-1.1) Eosinophils # (Auto) 0.2 x10^3/uL (0.0-0.7) Basophils # (Auto) 0.0 x10^3/uL (0.0-0.2) Sodium Level 140 mmol/L (136-145) Potassium Level 3.8 mmol/L (3.5-5.1) Chloride Level 103 mmol/L (98-107) Carbon Dioxide Level 27 mmol/L (21-32) Anion Gap 10 (6-14) Blood Urea Nitrogen 15 mg/dL (8-26) Creatinine 0.9 mg/dL (0.7-1.3) Estimated GFR (Cockcroft-Gault) 93.0 Glucose Level 100 mg/dL (70-99) Calcium Level 8.6 mg/dL (8.5-10.1) Assessment and Plan Assessmemt and Plan L hip effusion Possible septic joint SIRS Tobacco abuse Plan: Continue antibiotics (doxy, Rocephin) Continue pain meds Appreciate subspecialty input (ID, Ortho) Wound care Monitor drain Trend labs Cardiac monitoring DVT prophylaxis Full code Discharge once changed over to p.o. antibiotics Comment Review of Relevant I have reviewed the following items pietro (where applicable) has been applied. Medications: Current Medications Medications (Trade) Dose Ordered Sig/Re Route PRN Reason Start Time Stop Time Status Last Admin Dose Admin Enoxaparin Sodium (Lovenox 40mg Syringe) 40 mg Q24H SQ 02/11/21 12:00 02/11/21 12:53 Justifications for Admission Other Justification PRATIBHA LOVETT III DO Feb 12, 2021 08:51
[2021-02-12] MEDS: HYDROcodone/APAP 7.5/325MG 1 TAB TABLET PO PRN ×2 (09:33→15:16)
[2021-02-12 11:00] VITALS: BP 116/67
[2021-02-12] MEDS: ENOXAPARIN 40 MG/0.4 ML SYRINGE. SQ SCH (13:28)
[2021-02-12 15:00] VITALS: BP 120/71
[2021-02-12 19:00] VITALS: BP 110/67
[2021-02-12] MEDS: cefTRIAXone IV Push 2 GM VIAL. IVP SCH (19:59)
[2021-02-12 23:00] VITALS: BP 115/67
[2021-02-13] MEDS: HYDROcodone/APAP 7.5/325MG 1 TAB TABLET PO PRN ×4 (02:03→18:02)
[2021-02-13 03:00] VITALS: BP 120/67
[2021-02-13 04:37] LABS: BASO # 0.1 x10^3/uL (0.0-0.2); BASO % 1 % (0-3); EOS # 0.2 x10^3/uL (0.0-0.7); EOS % 2 % (0-3); HEMATOCRIT 34.6 % (39.0-53.0); HEMOGLOBIN 11.9 g/dL (13.0-17.5); LYMPH # 1.9 x10^3/uL (1.0-4.8); LYMPH % 16 % (24-48); MEAN CORPUSCULAR HEMOGLOBIN 32 pg (25-35); MEAN CORPUSCULAR HGB CONC 35 g/dL (31-37); MEAN CORPUSCULAR VOLUME 92 fL (79-100); MONO # 1.1 x10^3/uL (0.0-1.1); MONO % 10 % (0-9); NEUT # 8.5 x10^3/uL (1.8-7.7); NEUT % 72 % (31-73); PLATELET COUNT 389 x10^3/uL (140-400); RED BLOOD COUNT 3.78 x10^6/uL (4.30-5.70); RED CELL DISTRIBUTION WIDTH 13.5 % (11.5-14.5); WHITE BLOOD COUNT 11.8 x10^3/uL (4.0-11.0)
[2021-02-13 04:56] LABS: CREATININE 0.9 mg/dL (0.7-1.3); POTASSIUM 3.8 mmol/L (3.5-5.1)
--- NOTE | 2021-02-13 07:39 | PDOC ---
Infectious Disease Note Subjective: Subjective Patient has pain in the left hip He took Lortab Ambulating with a walker Denies fever, nausea, vomiting, shortness of breath, diarrhea, abdominal pain, rash Otherwise as above Vital Signs: Vital Signs Vital Signs Date Time Temp Pulse Resp B/P (MAP) Pulse Ox O2 Delivery O2 Flow Rate FiO2 02/13/21 03:00 98.1 79 16 120/67 (84) 94 Room Air 98.1 02/12/21 16:08 2.0 Physical Exam: PHYSICAL EXAM GENERAL: Alert, oriented x 3, pleasant male lying in bed comfortably, in no acute distress. HEENT: Normocephalic, atraumatic. Anicteric. No thrush. NECK: Supple, no JVD. LUNGS: Clear bilaterally. No wheezing. HEART: S1, S2. No gallops or murmurs. ABDOMEN: Soft, nontender, nondistended, no rebound, no guarding. EXTREMITIES: Left hip area swelling present. Dressing intact, not taken down Bruising present, drain removed.No cyanosis, no clubbing. DERMATOLOGIC: Warm, dry, no generalized rash except for above. NEUROLOGIC: Alert and oriented x 3, grossly nonfocal. PSYCHIATRIC: Calm and cooperative. PIV looks clean. Midline clean Medications: Inpatient Meds: Medications reviewed. Labs: Lab Laboratory Tests Test 02/13/21 03:30 White Blood Count 11.8 x10^3/uL (4.0-11.0) Red Blood Count 3.78 x10^6/uL (4.30-5.70) Hemoglobin 11.9 g/dL (13.0-17.5) Hematocrit 34.6 % (39.0-53.0) Mean Corpuscular Volume 92 fL (79-100) Mean Corpuscular Hemoglobin 32 pg (25-35) Mean Corpuscular Hemoglobin Concent 35 g/dL (31-37) Red Cell Distribution Width 13.5 % (11.5-14.5) Platelet Count 389 x10^3/uL (140-400) Neutrophils (%) (Auto) 72 % (31-73) Lymphocytes (%) (Auto) 16 % (24-48) Monocytes (%) (Auto) 10 % (0-9) Eosinophils (%) (Auto) 2 % (0-3) Basophils (%) (Auto) 1 % (0-3) Neutrophils # (Auto) 8.5 x10^3/uL (1.8-7.7) Lymphocytes # (Auto) 1.9 x10^3/uL (1.0-4.8) Monocytes # (Auto) 1.1 x10^3/uL (0.0-1.1) Eosinophils # (Auto) 0.2 x10^3/uL (0.0-0.7) Basophils # (Auto) 0.1 x10^3/uL (0.0-0.2) Sodium Level 138 mmol/L (136-145) Potassium Level 3.8 mmol/L (3.5-5.1) Chloride Level 102 mmol/L (98-107) Carbon Dioxide Level 27 mmol/L (21-32) Anion Gap 9 (6-14) Blood Urea Nitrogen 16 mg/dL (8-26) Creatinine 0.9 mg/dL (0.7-1.3) Estimated GFR (Cockcroft-Gault) 93.0 Glucose Level 94 mg/dL (70-99) Calcium Level 9.0 mg/dL (8.5-10.1) Micro RUN DATE: 02/12/21 [facility] LAB *LIVE* PAGE 1 RUN TIME: 0957 Specimen Inquiry PATIENT: GRIS CASTAÑEDA ACCT: [id number] LOC: [address] [place] [address] U: [id number] AGE/SX: 40/M ROOM: 422 RE02/07/[address]: BARRY TROTTER MD : 1980 BED: 1 DIS: STATUS: ADM IN TLOC: SPEC #: [id number] JAD: 02/07/21 STATUS: RES REQ #: [id number] RECD: 02/09/[address]: BARRY LORA DO SOURCE[facility] 02/10/21 [facility] DR: KEVIN LACY MD SPDC: DOMONIQUE BROWN MD NO PCP BARRY TROTTER MD ORDERED: ANAER/AEROB/GS COMMENTS: LEFT HIP FLUID Procedure Result GRAM STAIN Final Final NO ORGANISMS SEEN. SQUAMOUS EPI CELL:NOT APPLICABLE PMN (WBCs):MANY Unless otherwise specified, Testing Performed by: [address] [address] For Inquires, the Physician may contact the Microbiology department at [phone] ANAEROBIC-AEROBIC CULTURE Preliminary Preliminary No Growth on 02/11/21 at 0928 No Growth on 02/12/21 at 0952 Unless otherwise specified, Testing Performed by: [facility] [address] [place] [address] For Inquires, the Physician may contact the Microbiology department at [phone] END OF REPORT Objective: Assessment: 1. Left hip pain, Possible left hip septic arthritis, status post synovial aspirate with purulent fluid aspirated. Left hip synovitis aspirate studies noted February 09, 2021 status post incision and drainage Intraoperative cultures are negative so far Operative note pending at this time 2.. Leukocytosis, resolved 3. Intractable left hip pain. Improving slowly 4. 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 History of hernia repair. 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 Wednesday labs CBC/BUN/creatinine//ESR/CRP. Fax results to [phone] Follow-up ID clinic in 3 weeks,Appt during Mar 05 week PH [phone] Wound care per Orthopedics PT and OT as directed Pain control per primary Discussed with at bedside yesterday Discussed with KEVIN ASHTON MD Feb 13, 2021 07:39
[2021-02-13] MEDS: LACTOBACILLUS RHAMNOSUS GG 1 CAPSULE. PO SCH (08:06)
[2021-02-13] MEDS: DOXYCYCLINE HYCLATE 100 MG TABLET PO SCH (08:06)
[2021-02-13] MEDS: SENNOSIDES/DOCUSATE 8.6/50MG TABLET. PO SCH (08:10)
[2021-02-13] MEDS ORDERED: HYDR-2765 PO (10:30)
--- NOTE | 2021-02-13 10:32 | SNU/HH DC ---
DISCHARGE WITH HOME HEALTH DISCHARGE INFORMATION: Condition on Discharge: Stable CODE STATUS: Code Status: Full HOME HEALTH: Face to Face: I certify this patient is under my care and that I, or a nurse practitioner or physician's assistant secretary working with me, had a face to face encounter that meets the physician face to face encounter requirements with this patient on []. 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 POST DISCHARGE ORDERS: DIET AFTER DISCHARGE: Cardiac CERTIFICATION STATEMENT: Certification Statement: Certification Statement: Based on the above finding, I certify that this patient is confined to the home and needs intermittent assisted care, physical therapy and/or speech therapy, or continues to need occupational therapy.~ This patient is under my care, and I have initiated the establishment of the plan of care.~ This patient will be followed by myself or a community physician who will periodically review the plan of care. Home Meds Active Scripts Hydrocodone Bit/Acetaminophen (HYDROCODONE-APAP 7.5-325 ) 1 Tab Tablet, 1 TAB PO PRN Q4HRS PRN for MODERATE PAIN (1st Choice) for 10 Days, #30 TAB Prov:PRATIBHA LOVETT III DO 02/13/21 PRATIBHA LOVETT III DO Feb 13, 2021 10:32
--- NOTE | 2021-02-13 10:53 | PDOC3 ---
[facility]-Discharge Summary Date of Discharge: Date of Discharge: Feb 13, 2021 Admission Diagnosis: Admitting Diagnosis: Possible left hip infection Discharge Diagnosis: Discharge Diagnosis: L hip effusion Possible septic joint SIRS Tobacco abuse Consults: Consults: Infectious disease and orthopedics Procedures: Procedures: Aspiration left hip Hospital Course: Hospital Course: Patient is a middle-aged male who presented with some left hip pain we were concerned he could have a left hip infection We consulted infectious disease and orthopedics He was given IV antibiotics and we aspirated the hip Today I saw examined the patient is at his baseline he still needing crutches and physical therapy but would like to get home I discussed case with RN and case management and infectious disease The plan is to discharge him on p.o. Augmentin and doxycycline with outpatient physical therapy Activity: Activity: Resume previous activity Medications: Home Meds Active Scripts Hydrocodone Bit/Acetaminophen (HYDROCODONE-APAP 7.5-325 ) 1 Tab Tablet, 1 TAB PO PRN Q4HRS PRN for MODERATE PAIN (1st Choice) for 10 Days, #30 TAB Prov:PRATIBHA LOVETT III DO 02/13/21 Scheduled PRN Hydrocodone Bit/Acetaminophen (Hydrocodone-Apap 7.5-325 ), 1 TAB PO PRN Q4HRS PRN for MODERATE PAIN (1st Choice) Justicifation of Admission Dx: Justifications for Admission: Justification of Admission Dx: Comment: Comments: Left hip infection PRATIBHA LOVETT III, DO Feb 13, 2021 10:53
--- NOTE | 2021-02-13 10:56 | PDOC ---
[facility] PROGRESS NOTE Date of Service DOS: DATE: 02/13/21 TIME: 10:50 Chief Complaint Chief Complaint L hip effusion Possible septic joint SIRS Tobacco abuse History of Present Illness History of Present Illness 02/13/2021: Pt seen and examined. Chart reviewed. Discussed with RN, , PT, and ID. Pt was standing with assistance during examination. He was in NAD and appeared to be in good spirits. 02/12/2021 Patient seen and examined I called the pharmacy to clarify antibiotic coverage We currently have him on Rocephin 2 g every 24 hours and p.o. doxycycline Overall patient doing well but having some pain Tolerating breakfast 02/11/2021 No acute events overnight. Patient seen and examined bedside. Evaluated by physical therapy and they recommend acute rehab. Patient states that he feels like he might wants to go home. Patient endorses improved mobility with his left and right lower extremity. Dressings are clear dry intact. Afebrile. Patient's chart, labs, images were reviewed and discussed with RN 02/10/2021: Pt seen and examined. Discussed with RN. Chart reviewed. Pt cooperative and alert. 02/09/2021: Afebrile. Reports left hip pain with movement. Hydrocodone helps, but wears off. Frustrated he is not improving faster. Encouraged continued work with PT. Discussed with Dr. Vasquez, no cell count or Gram stain have resulted yet. No crystals seen under normal or polarized light will reorder fluid studies; cell count, AFB, fungal culture, aerobic/anaerobic culture, crystals, Gram stain. Will place consultation to ID. Vitals/I&O Vitals/I&O: Vital Signs Date Time Temp Pulse Resp B/P (MAP) Pulse Ox O2 Delivery O2 Flow Rate FiO2 02/13/21 08:06 94 Room Air 2.0 02/13/21 03:00 98.1 79 16 120/67 (84) 98.1 I & O 02/12/21 02/12/21 02/13/21 15:00 23:00 07:00 Output Total 200 ml 500 ml 250 ml Balance -200 ml -500 ml -250 ml Physical Exam Physical Exam: GENERAL: Alert, oriented x 3. Standing with assistance in NAD. HEENT: Normocephalic, atraumatic. Anicteric. No thrush. NECK: Supple, no JVD. LUNGS: Clear bilaterally. No wheezing. HEART: S1, S2. No gallops or murmurs. ABDOMEN: Soft, nontender, nondistended, no rebound, no guarding. EXTREMITIES: Left hip area swelling present. Dressing intact, not taken down Bruising present, drain removed.No cyanosis, no clubbing. DERMATOLOGIC: Warm, dry, no generalized rash except for above. NEUROLOGIC: Alert and oriented x 3, grossly nonfocal. PSYCHIATRIC: Calm and cooperative. PIV looks clean. Midline clean General: Alert, Oriented X3, Cooperative, No acute distress Heart: Regular rate Lungs: Clear Abdomen: Normal bowel sounds, Soft, No tenderness, No hepatosplenomegaly, No masses Extremities: No clubbing, No cyanosis, No edema, Normal pulses, Other (left hip laterally tender, swollen, pain on extension) Skin: No rashes, No breakdown, No significant lesion Labs Labs: Laboratory Tests Test 02/13/21 03:30 White Blood Count 11.8 x10^3/uL (4.0-11.0) Red Blood Count 3.78 x10^6/uL (4.30-5.70) Hemoglobin 11.9 g/dL (13.0-17.5) Hematocrit 34.6 % (39.0-53.0) Mean Corpuscular Volume 92 fL (79-100) Mean Corpuscular Hemoglobin 32 pg (25-35) Mean Corpuscular Hemoglobin Concent 35 g/dL (31-37) Red Cell Distribution Width 13.5 % (11.5-14.5) Platelet Count 389 x10^3/uL (140-400) Neutrophils (%) (Auto) 72 % (31-73) Lymphocytes (%) (Auto) 16 % (24-48) Monocytes (%) (Auto) 10 % (0-9) Eosinophils (%) (Auto) 2 % (0-3) Basophils (%) (Auto) 1 % (0-3) Neutrophils # (Auto) 8.5 x10^3/uL (1.8-7.7) Lymphocytes # (Auto) 1.9 x10^3/uL (1.0-4.8) Monocytes # (Auto) 1.1 x10^3/uL (0.0-1.1) Eosinophils # (Auto) 0.2 x10^3/uL (0.0-0.7) Basophils # (Auto) 0.1 x10^3/uL (0.0-0.2) Sodium Level 138 mmol/L (136-145) Potassium Level 3.8 mmol/L (3.5-5.1) Chloride Level 102 mmol/L (98-107) Carbon Dioxide Level 27 mmol/L (21-32) Anion Gap 9 (6-14) Blood Urea Nitrogen 16 mg/dL (8-26) Creatinine 0.9 mg/dL (0.7-1.3) Estimated GFR (Cockcroft-Gault) 93.0 Glucose Level 94 mg/dL (70-99) Calcium Level 9.0 mg/dL (8.5-10.1) Review of Systems Review of Systems: L hip pain Fatigue Assessment and Plan Assessmemt and Plan L hip effusion Possible septic joint SIRS Tobacco abuse Plan: Continue antibiotics (doxy, Rocephin) Will DC with PO Anbx (per ID recommendations) Continue pain meds Appreciate subspecialty input (ID, Ortho) Wound care Trend labs Cardiac monitoring DVT prophylaxis Full code ID will likely DC after pending labs are resolved and outpatient Anbx tx is arranged. Comment Review of Relevant I have reviewed the following items pietro (where applicable) has been applied. Justifications for Admission Other Justification PRATIBHA LOVETT III DO Feb 13, 2021 10:56
[2021-02-13 11:20] VITALS: BP 116/70
[2021-02-13] MEDS: ENOXAPARIN 40 MG/0.4 ML SYRINGE. SQ SCH (12:00)
[2021-02-13 15:00] VITALS: BP 124/67
--- NOTE | 2021-02-13 18:19 | NUR ---
Discharge Note: GRIS CSATAÑEDA [address] [place] [address] Discharge instructions and discharge home medications reviewed with Patient and a copy given. All questions have been answered and understanding verbalized. The following instructions and handouts were given: Diet, activity, medication list and follow up instructions provided to patient and patient's spouse. outpatient infusion therapy set up by wrapper caser. Discontinued lines and drains: Mid-line intact, peripheral IV discontinued and catheter intact. Patient discharged to Home or Self Care with Spouse via Wheelchair
== END 2021-02-13 17:55 | disposition home or self-care (01) | DRG 549 ==
LOC: 4 NORTH 14:59
PROVIDERS: ADMIT Family Medicine; ATTEND Internal Medicine
PROC: 3E0U33Z Introduction of Anti-inflammatory into Joints, Percutaneous Approach (ICD-10-PCS; 2021-02-07)
PROC: 3E0U3BZ Introduction of Anesthetic Agent into Joints, Percutaneous Approach (ICD-10-PCS; 2021-02-07)
PROC: 0S9B3ZZ Drainage of Left Hip Joint, Percutaneous Approach (ICD-10-PCS; principal; 2021-02-07 14:30)
PROC: 05HA33Z Insertion of Infusion Device into Left Brachial Vein, Percutaneous Approach (ICD-10-PCS; 2021-02-11)
PROC: B54NZZA Ultrasonography of Left Upper Extremity Veins, Guidance (ICD-10-PCS; 2021-02-11)
DX: M00.9 Pyogenic arthritis, unspecified (principal); R65.10 Systemic inflammatory response syndrome (SIRS) of non-infectious origin without acute organ dysfunction; Z20.822 Contact with and (suspected) exposure to COVID-19; Z72.0 Tobacco use; M25.452 Effusion, left hip
CPT/HCPCS: 20610; 36415; 36569; 77002; 80048; 80202; 82550; 82565; 82945; 85014; 85018; 85025; 85651; 86140; 87071; 87075; 87102; 87116; 87426; 87491; 87591; 89050; 89060; A4364; A4452; A4930; A6253; A6402; J0690; J0696; J1335; J1650; J2405; J2704; J3010; J3370; J7040; J7050; J7120; U0003; U0005; 97110-GP; 97530-GO; 97535-GO; G0378; J7030